=== PATIENT | female | born 2000 | race Caucasian/White ===

== ENCOUNTER 2025-01-15 13:55 | Emergency (ER) | payer OTHER ==
[2025-01-15 15:00] LABS: Specific Gravity 1.012 (1.005-1.030); Sqamous Epithelial <5 /HPF (None Seen); Urine Bacteria <20 /HPF (<20); Urine Bilirubin NEGATIVE (Negative); Urine Blood Negative (Negative); Urine Clarity Turbid (Clear); Urine Color Light-Yellow (Yellow); Urine Culture Reflex Order NOT NEEDED; Urine Glucose NEGATIVE (Negative); Urine Ketones NEGATIVE (Negative); Urine Microscopic Reflex YN ORDER UMIC; Urine Mucus Slight /HPF (None Seen); Urine Nitrite NEGATIVE (Negative); Urine Protein NEGATIVE (Negative); Urine RBC <5 /HPF (None Seen); Urine Urobilinogen Normal (Normal); Urine WBC <5 /HPF (<5); Urine pH 5.5 (5.0-7.0)
[2025-01-15 15:02] LABS: Absolute Basophils 0.1 K/uL (0-0.5); Absolute Lymphocytes (CBC) 1.9 K/uL (0.7-4.9); Absolute Monocytes 0.6 K/uL (0.1-1.3); Absolute Neutrophil 5.7 K/uL (1.8-8.0); Basophils % 0.8 % (0-1.3); Eosinophils % 0.4 % (0-4.4); Hematocrit 39.6 % (36.0-45.0); Hemoglobin 13.7 g/dL (12.0-15.0); Lymphocytes % 23.1 % (15.3-44.8); MCH 31.5 pg (27.0-35.0); MCHC 34.7 g/dL (32.0-36.0); MPV 8.2 fL (7.6-11.3); Monocytes % 6.7 % (3.3-12.3); Platelets 295 thou/uL (152-406); RBC Red Blood Cell Count 4.36 M/uL (3.86-4.86); Red Cell Distribution Width 12.7 % (12.1-15.2)
[2025-01-15 15:06] LABS: PT Prothrombin Time 11.5 SECONDS (10-13.0); PTT, Activated Partial Thromb 32.2 SECONDS (27.2-37.4); Protime INR 1.01
[2025-01-15 15:08] LABS: Barbiturates NEGATIVE (NEGATIVE); Benzodiazepines NEGATIVE (NEGATIVE); Cocaine NEGATIVE (NEGATIVE); METHAMPHETAM NEGATIVE (NEGATIVE); Methadone NEGATIVE (NEGATIVE); Opiates NEGATIVE (NEGATIVE); Phencyclidine NEGATIVE (NEGATIVE); THC Cannibis POSITIVE (NEGATIVE)
--- NOTE | 2025-01-15 15:17 | EDPHYS ---
Physician Documentation [facility] Name: Amber Santiago Age: 24 yrs Sex: Female : 2000 Arrival Date: 01/15/2025 Time: 13:55 Bed 17 Private MD: ED Physician Harish Ng HPI: 01/15 14:30 This 24 yrs old Female presents to ER via Ambulatory with complaints of Suicidal kb Ideation. 14:30 Pt is a 24 year old female who presents for suicidal ideations. States she has had post kb depression that started 8 months ago with suicidal ideations for the past 3-4 months. States the ideations are getting worse so that is what made her come in today. Reports plan would be to drive her car off of a bridge. States she had a firearm in the house, but her child's father removed it. . 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 - Infectious Disease History:: Denies. - Social history:: Smoking status: Patient denies any tobacco usage or history of. Patient/guardian denies using alcohol, street drugs. ROS: 14:28 Constitutional: As per HPI kb Exam: 14:28 Constitutional: This is a well developed, well nourished patient who is awake, alert, kb and in no acute distress. Head/Face: Normocephalic, atraumatic. ENT: Moist Mucous membranes Cardiovascular: Regular rate Respiratory: Respirations even and unlabored. No increased work of breathing. Talking in full sentences Skin: Warm, dry with normal turgor. Normal color. MS/ Extremity: Pulses equal, no cyanosis. Neurovascular intact. Full, normal range of motion. Neuro: Awake and alert, GCS 15, oriented to person, place, time, and situation. 14:28 Psych: Behavior/mood is pleasant, cooperative, Affect is calm, Oriented to person, place, time, Patient having thoughts of suicide. 15:03 ECG was reviewed by the Attending Physician. kb Vital Signs: 13:59 BP 136 / 89; Pulse 82; Resp 18 S; Pulse Ox 100% on R/A; aa5 16:15 BP 117 / 69; Pulse 79; Resp 16; Temp 98; Pulse Ox 100% ; bp MDM: 13:59 Medical Screening Exam initiated kb 14:28 Differential diagnosis: acute psychotic break, depression, post depression, kb suicidal ideations. Data reviewed: vital signs, nurses notes. Consideration of Admission/Observation Escalation of care including admission/observation considered. pt will be transferred for inpatient psychiatric treatment. . Counseling: I had a detailed discussion with the patient and/or guardian regarding the historical points, exam findings, and any diagnostic results supporting the discharge/admit diagnosis, lab results, the need to transfer to another facility, [facility] does not immediately have the required specialist. ED course: Pt requests to be transferred to get help. Pt is voluntary. 15:16 ED course: Medically cleared. Transfer initiated. kb 15:35 Management of patient was discussed with the following: Behavioral Health Provider: Dr lizzette Fields accepts pt for transfer to [facility] without conference. 01/15 14:03 Order name: Acetaminophen; Complete Time: 15:23 kb 01/15 14:03 Order name: Basic Metabolic Panel; Complete Time: 15:23 kb 01/15 14:03 Order name: CBC with Diff; Complete Time: 15:03 kb 01/15 14:03 Order name: ETOH Level; Complete Time: 15:13 kb 01/15 14:03 Order name: Hepatic Function; Complete Time: 15:23 kb 01/15 14:03 Order name: PT-INR; Complete Time: 15:10 kb 01/15 14:03 Order name: Test, Urine; Complete Time: 15:03 kb 01/15 14:03 Order name: Ptt, Activated; Complete Time: 15:10 kb 01/15 14:03 Order name: Salicylate; Complete Time: 15:13 kb 01/15 14:03 Order name: Urinalysis w/ reflexes; Complete Time: 15:03 kb 01/15 14:03 Order name: Urine Drug Screen; Complete Time: 15:10 kb 01/15 14:03 Order name: EKG; Complete Time: 14:04 kb 01/15 14:03 Order name: EKG - Nurse/Tech; Complete Time: 15:22 kb 01/15 14:03 Order name: IV Saline Lock; Complete Time: 14:50 kb 01/15 14:03 Order name: Labs collected and sent; Complete Time: 14:50 kb 01/15 14:03 Order name: Suicide Precautions; Complete Time: 14:50 kb 01/15 14:03 Order name: Suicide Screening ([place]); Complete Time: 14:50 kb EC:03 Rate is 80 beats/min. Rhythm is regular. QRS Orion is Normal. MA interval is normal at kb 130 msec. QRS interval is normal at 88 msec. QT interval is normal at 456 msec. Administered Medications: No medications were administered Disposition: 18:28 Co-signature as Attending Physician, Harish Ng MD I reviewed the patient's care rt provided by the Advanced Practice Provider and agree with the diagnosis and treatment plan. Disposition Summary: 01/15/25 15:16 Transfer Ordered Notes: Transfer Location: Psych Facility kb Reason: Higher level of care kb Condition: Stable kb Problem: new kb Symptoms: are unchanged kb Accepting Physician: Dr Fields(01/15/25 16:18) bp Diagnosis - Suicidal ideations kb Discharge Instructions: - Discharge Summary Sheet ty Forms: - Medication Reconciliation Form kb - SBAR form kb Signatures: Dispatcher [employer] Selina Gutierrez, MIRANDA-C ADZ WORKER-Leola Rao, RN RN aa5 Kei Diamond RN RN bp Harish Ng MD MD rt Corrections: (The following items were deleted from the chart) 15:35 15:16 Dr crocker kb 16:18 15:35 Dr Donnie crocker bp
--- NOTE | 2025-01-15 15:17 | ER ---
Nurse's Notes [facility] Name: Amber Santiago Age: 24 yrs Sex: Female : 2000 Arrival Date: 01/15/2025 Time: 13:55 Bed 17 Private MD: Diagnosis: Suicidal ideations Presentation: 01/15 13:59 Chief complaint: Patient states: "I suffer from depression and I've been aa5 having really bad suicidal thoughts". Risk Assessment: Do you want to hurt yourself or someone else? Patient reports desire/thoughts of hurting themselves or someone else. Provider notified. Onset of symptoms was January 15, 2025. 13:59 Acuity: SAM 2 aa5 13:59 Method Of Arrival: Ambulatory aa 13:59 Coronavirus screen: At this time, the client does not indicate any symptoms associated aa5 with coronavirus-19. Ebola Screen: Patient denies travel to an Ebola-affected area in the 21 days before illness onset. Initial Sepsis Screen: Does the patient meet any 2 criteria? No. Patient's initial sepsis screen is negative. Does the patient have a suspected source of infection? No. Patient's initial sepsis screen is negative. Triage Assessment: 14:00 General: Appears in no apparent distress. Behavior is cooperative, appropriate for age. bp Pain: Denies pain. EENT: No deficits noted. Neuro: Level of Consciousness is awake, alert, obeys commands, Oriented to Appropriate for age. Cardiovascular: No deficits noted. Respiratory: No deficits noted. GI: No signs and/or symptoms were reported involving the gastrointestinal system. : No signs and/or symptoms were reported regarding the genitourinary system. Derm: No deficits noted. Musculoskeletal: No deficits noted. 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 - Infectious Disease History:: Denies. - Social history:: Smoking status: Patient denies any tobacco usage or history of. Patient/guardian denies using alcohol, street drugs. Screenin:00 [facility] ED Fall Risk Assessment (Adult) History of falling in the last 3 months, bp including since admission No falls in past 3 months (0 pts) Confusion or Disorientation No (0 pts) Intoxicated or Sedated No (0 pts) Impaired Gait No (0 pts) Mobility Assist Device Used No (0 pt) Altered Elimination No (0 pt) Score/Fall Risk Level 0 - 2 = Low Risk Oriented to surroundings. Abuse screen: Denies threats or abuse. Denies injuries from another. Nutritional screening: No deficits noted. Tuberculosis screening: No symptoms or risk factors identified. Assessment: 14:00 General: Appears in no apparent distress. slender, well groomed, Behavior is bp cooperative, appropriate for age, anxious. Pain: Denies pain. 15:35 Reassessment: Nurse to nurse olya lee/ DANY Bridges at [facility]. 16:15 Reassessment: EMS AT B/S FOR TRANSPORT. bp Psych: 14:00 [place] Suicide Severity Screening: In the past month, have you wished you were bp or wished you could go to sleep and not wake up? Patient responds "yes." Based off the client's responses additional C-SSRS screening is required. "In the past month, have you actually had any thoughts of killing yourself?" Patient responds "yes." Based off the client's response additional [place] suicide severity screening questions to be further documented on paper forms. "In your lifetime, have you ever done anything, started to do anything, or prepared to do anything to end your life?" Patient responds "yes." Patient reports suicidal intent within 3 past months. Subjective: Patient's mood is sad, Delusions are denied, Hallucinations are denied Having thoughts of suicide. Denies suicidal plan. Objective: Patient is cooperative, Speech is normal, Affect is appropriate. Interventions: Removed personal items and placed in bag. Patient placed in hospital gown. Searched person for dangerous items. Urine collected and sent for urine drug test. Belonging list filled out. Safety Checks: Personal items have been removed. Door is open. No visitors are present at this time. Pt denies substance abuse. Commitment: Patient will be a voluntary commitment. Vital Signs: 13:59 BP 136 / 89; Pulse 82; Resp 18 S; Pulse Ox 100% on R/A; aa5 16:15 BP 117 / 69; Pulse 79; Resp 16; Temp 98; Pulse Ox 100% ; bp ED Course: 13:57 Patient arrived in ED. al6 13:59 Kei Diamond, RN is Primary Nurse. bp 13:59 Selina Campos FNP-C is PHCP. kb 13:59 Harish Ng MD is Attending Physician. kb 13:59 Arm band placed on. aa5 14:00 Triage completed. aa5 14:00 Patient has correct armband on for positive identification. bp 14:35 Inserted saline lock: 20 gauge in right antecubital area, using aseptic technique. [id number] Blood collected. Flushed with 10 mL NS IV discontinued, bleeding controlled, No redness/swelling at site. Pressure dressing applied. 15:20 Patient info faxed to Renee camacho, [facility], Carol Myers. ty 15:30 [facility] for [id number]. ty 15:46 [place] called for patient transport. ty 16:15 No provider procedures requiring assistance completed. bp 16:39 Patient did not have IV access during this emergency room visit. bp Administered Medications: No medications were administered Medication: 14:00 VIS not applicable for this client. bp Outcome: 15:16 ER care complete, transfer ordered by . kb 16:15 Transferred by ground EMS bp 16:18 Patient left the ED. bp Signatures: Selina Campos FNP-C FNP-Ckb Calderon, Audri, RN RN aa5 Kesha Martinez RN RN Kei Diamond, RN RN Shaheen Villalba Alissa al6 Jess Bettencourt [id number]
[2025-01-15 15:19] LABS: ALT/SGPT 18 U/L (13-56); AST/SGOT 14 U/L (15-37); Alkaline Phosphatase 69 U/L (45-117); Anion Gap 7.6 mEq/L (5.0-15.0); BUN Blood Urea Nitrogen 11 mg/dL (7-18); Bicarbonate 27 mEq/L (21-32); Bilirubin Direct 0.2 mg/dL (0-0.2); Bilirubin Indirect, Calculated 0.8 mg/dL (0.2-0.8); Globulin 3.9 g/dL (2.3-3.5); Glomerular Filtration Rate 127 ml/min (=/>90); Glucose Level 108 mg/dL (74-106); Potassium 3.6 mEq/L (3.5-5.1); Protein, Total 7.9 g/dL (6.4-8.2); Sodium Level 138 mEq/L (136-145)
[2025-01-15 16:27] VITALS: BP 136/89; O2SAT 100
== END 2025-01-15 16:18 ==
LOC: ER 13:55
DX: R45.851 Suicidal ideations (principal); F31.9 Bipolar disorder, unspecified
CPT/HCPCS: 36415; 80048; 80076; 80143; 80179; 80307; 81001; 81025; 82077; 85025; 85610; 85730; 93005; 99285